=== PATIENT | male | born 1965 | race African-American/Black ===

== ENCOUNTER 2016-10-14 09:35 | Emergency (ER) | payer MEDICARE ==
[~2016-10-14] VITALS: Ht 152.4 cm; Wt 81.8 kg
[~2016-10-14 09:35] MED LIST: ABILIFY2 MG; ANUSOL-HC SUPPO25 MG RC; CARAFATE 1GM1 G PO; FLOMAX 0.40.4 MG/CAP PO; NAPROSYN 2250 MG/TAB PO; NO HOME MEDICATIONS; NORCO 325 MG-51 TAB PO; NORCO 325 MG-7.1 TAB PO; ROBAXIN 50500 MG/TAB PO; TYLENOL 500MG500 MG PO; TYLENOL 8 HR PO; TYLENOL EXTRA500 M1; ZOLOFT 25MG25 MG
[2016-10-14 09:39] VITALS: BP 133/72; PULSE 91; TEMP 97.4
== END 2016-10-14 10:40 | disposition left against medical advice (07) ==
LOC: COL.ER 09:35
DX: R10.32 Left lower quadrant pain (principal); Z53.29 Procedure and treatment not carried out because of patient's decision for other reasons
CPT/HCPCS: Q9967

== ENCOUNTER 2016-10-14 13:48 | Emergency (ER) | payer MEDICARE ==
[~2016-10-14] VITALS: Ht 175.3 cm; Wt 81.8 kg
[2016-10-14 13:53] VITALS: BP 172/78; PULSE 96; TEMP 96.7
[2016-10-14 14:53] LABS: BASO % 0.6 % (0.0-2.0); EOS # 0.1 (0.0-0.7); EOS % 3.3 % (0-4.0); HEMATOCRIT 37.9 % (42.0-52.0); HEMOGLOBIN 12.1 g/dl (13.5-18.0); LYMPH # 0.8 (1.2-3.4); LYMPH % 23.7 % (20.0-51.0); MEAN CELL VOLUME 89 fl (80.0-100.0); MEAN CORPUSCULAR HEMOGLOBIN 29 pg (27.0-31.0); MEAN CORPUSCULAR HGB CONC 32 g/dl (33.0-37.0); MEAN PLATELET VOLUME 10.9 fl (7.4-10.4); MONO # 0.4 (0.1-0.6); MONO % 11.8 % (1.7-9.3); PLATELET COUNT 273 K/mm3 (130-400); RED BLOOD COUNT 4.24 M/mm3 (4.20-5.60); REDCELL DISTRIBUTION WIDTH-CV 14.8 % (11.5-14.5); WHITE BLOOD COUNT 3.4 K/mm3 (4.8-10.8)
[2016-10-14 15:09] LABS: ADJUSTED CALCIUM 9.4 mg/dL (8.4-10.2); ALBUMIN 4.2 gm/dL (3.5-5.0); BILIRUBIN,TOTAL 0.9 mg/dL (0.0-1.0); CALCIUM 9.6 mg/dL (8.4-10.2); CREATININE, serum 0.86 mg/dL (0.66-1.25); POTASSIUM 3.8 mmol/L (3.4-5.0); TOTAL PROTEIN 7.4 gm/dL (6.4-8.2)
== END 2016-10-14 15:46 | disposition left against medical advice (07) ==
LOC: COL.ER 13:48
PROVIDERS: Physician Assistant Medical
DX: R10.32 Left lower quadrant pain (principal); Z53.21 Procedure and treatment not carried out due to patient leaving prior to being seen by health care provider
CPT/HCPCS: Q9967

== ENCOUNTER 2018-12-05 15:30 | Emergency (ER) | payer SELFPAY ==
[~2018-12-05] VITALS: Ht 172.7 cm; Wt 92.3 kg
[2018-12-05 15:35] VITALS: TEMP 98.1
[2018-12-05 16:10] LABS: BASO % 0.5 % (0.0-2.0); EOS # 0.2 (0.0-0.7); EOS % 2.8 % (0-4.0); GRAN # 3.5 (1.4-6.5); GRAN % 61.1 % (42.2-75.2); HEMATOCRIT 41.9 % (42.0-52.0); HEMOGLOBIN 13.6 g/dl (13.5-18.0); LYMPH # 1.5 (1.2-3.4); MEAN CELL VOLUME 88 fl (80.0-100.0); MEAN CORPUSCULAR HEMOGLOBIN 29 pg (27.0-31.0); MEAN CORPUSCULAR HGB CONC 33 g/dl (33.0-37.0); MEAN PLATELET VOLUME 11.2 fl (7.4-10.4); MONO # 0.5 (0.1-0.6); MONO % 9.1 % (1.7-9.3); PLATELET COUNT 308 K/mm3 (130-400); RED BLOOD COUNT 4.77 M/mm3 (4.20-5.60); REDCELL DISTRIBUTION WIDTH-CV 14.6 % (11.5-14.5)
[2018-12-05 16:19] LABS: ALBUMIN 4.3 gm/dL (3.5-5.0); BILIRUBIN,TOTAL 0.4 mg/dL (0.0-1.0); CREATININE, serum 0.92 (0.66-1.25); POTASSIUM 4.7 mmol/L (3.4-5.0); TOTAL PROTEIN 7.8 gm/dL (6.4-8.2)
[2018-12-05 16:36] LABS: ERYTHROCYTE SEDIMENTATION RATE 7 mm/hr (0-30)
[2018-12-05] MEDS ORDERED: VOLTAREN 75 DR75 MG PO (17:23)
[2018-12-05 17:38] VITALS: BP 155/97; PULSE 67
== END 2018-12-05 17:35 | disposition home or self-care (01) ==
LOC: COL.ER 15:30
PROVIDERS: Family Medicine
DX: G44.209 Tension-type headache, unspecified, not intractable (principal); I10 Essential (primary) hypertension; F32.9 Major depressive disorder, single episode, unspecified

== ENCOUNTER 2019-02-27 12:37 | Emergency (ER) | payer MEDICARE ==
[~2019-02-27] VITALS: Ht 172.7 cm; Wt 88.6 kg
[~2019-02-27 12:37] MED LIST changes: +VOLTAREN 75 DR75 MG PO
[2019-02-27 12:55] VITALS: BP 158/81; PULSE 69; TEMP 97
[2019-02-27] MEDS ORDERED: FLEXERIL 1010 MG/TAB PO (14:24)
[2019-02-27] MEDS ORDERED: NORCO 325 MG-51 TAB PO (14:24)
== END 2019-02-27 14:35 | disposition home or self-care (01) ==
LOC: COL.ER 12:37
DX: S39.012A Strain of muscle, fascia and tendon of lower back, initial encounter (principal); S39.011A Strain of muscle, fascia and tendon of abdomen, initial encounter; F41.9 Anxiety disorder, unspecified; F32.9 Major depressive disorder, single episode, unspecified; F17.210 Nicotine dependence, cigarettes, uncomplicated; Z98.890 Other specified postprocedural states; Z87.19 Personal history of other diseases of the digestive system; X50.0XXA Overexertion from strenuous movement or load, initial encounter; Y93.F2 Activity, caregiving, lifting

== ENCOUNTER 2020-08-07 06:51 | Day surgery (SDC) | payer MEDICAID ==
[~2020-08-07] VITALS: Ht 172.7 cm; Wt 94.2 kg
[~2020-08-07 06:51] MED LIST changes: +FLEXERIL 1010 MG/TAB PO
[2020-08-07 07:33] VITALS: BP 175/87; PULSE 70; TEMP 97.5
[2020-08-07 07:37] LABS: BASO % 0.9 % (0.0-2.0); EOS # 0.1 (0.0-0.7); EOS % 1.9 % (0-4.0); GRAN # 2.5 (1.4-6.5); GRAN % 59.6 % (42.2-75.2); HEMATOCRIT 45.9 % (42.0-52.0); HEMOGLOBIN 14.7 g/dl (13.5-18.0); LYMPH # 1.2 (1.2-3.4); LYMPH % 28.7 % (20.0-51.0); MEAN CELL VOLUME 87 fl (80.0-100.0); MEAN CORPUSCULAR HEMOGLOBIN 28 pg (27.0-31.0); MEAN CORPUSCULAR HGB CONC 32 g/dl (33.0-37.0); MEAN PLATELET VOLUME 10.4 fl (7.4-10.4); MONO # 0.4 (0.1-0.6); MONO % 8.7 % (1.7-9.3); PLATELET COUNT 311 K/mm3 (130-400); REDCELL DISTRIBUTION WIDTH-CV 13.9 % (11.5-14.5)
[2020-08-07] MEDS ORDERED: ADVIL200 MG PO (07:48)
--- NOTE | 2020-08-07 07:50 | NUR ---
PATENT CURRENTLY SLEEPING QUIETLY. CALL LIGHT IN REACH
[2020-08-07 07:52] LABS: ALBUMIN 4.6 gm/dL (3.5-5.0); BILIRUBIN,TOTAL 0.6 mg/dL (0.0-1.0); CREATININE, serum 1.05 (0.66-1.25)
[2020-08-07] MEDS ORDERED: ULTRAM 50MG TAB50 MG PO (10:52)
[2020-08-07 11:45] VITALS: BP 117/69; PULSE 81; TEMP 97.4
--- NOTE | 2020-08-07 11:45 | NUR ---
PATIENT TO RM 7 PER CART FROM PACU. DROWSY, BUT ANSWERS TO VERBAL STIMULI AND FALLS BACK TO SLEEP. INCISIONS CLEAN DRY INTACT. O2 SAT 97% ON ROOM AIR. DENIES NAUSEA OR VOMITING. DENIES PAIN AT THIS TIME.
[2020-08-07 11:51] VITALS: TEMP 97.4
[2020-08-07 12:00] VITALS: BP 122/70; PULSE 84
--- NOTE | 2020-08-07 12:00 | NUR ---
PATIENT MORE AWAKE AND ASKING TO GO HOME. RECEIVED WATER AND DRANK 1/2 CUP.
--- NOTE | 2020-08-07 12:11 | NUR ---
RIDE CALLED - DUE TO IT BEING AT LEAST 45MIN DRIVE.
[2020-08-07 12:15] VITALS: BP 122/73; PULSE 83
--- NOTE | 2020-08-07 12:15 | NUR ---
REQUESTED SOMETHING TO EAT SO HE CAN GO HOME.
[2020-08-07 12:30] VITALS: BP 121/73; PULSE 79
--- NOTE | 2020-08-07 12:30 | NUR ---
PATIENT FELL ASLEEP WHILE EATING MUFFIN.
--- NOTE | 2020-08-07 13:30 | NUR ---
AMBULATED TO BATHROOM WITH ASSIST SLOW STEADY GAIT. AMBULATED BACK TO BED WITH A MORE STEADY GAIT.
--- NOTE | 2020-08-07 13:45 | NUR ---
RECEIVED DISCHARGE INSTRUCTIONS DISCONTINUED IV AND INT- CATHETER INTACT.
--- NOTE | 2020-08-07 14:10 | NUR ---
DISCHARGED PER WC BY NURSING STAFF TO PRIVATE CAR IN CARE OF FRIEND RENETTA.
== END 2020-08-07 14:17 | disposition home or self-care (01) ==
LOC: SDCO 06:51
PROVIDERS: Surgery
DX: K42.9 Umbilical hernia without obstruction or gangrene (principal); K41.90 Unilateral femoral hernia, without obstruction or gangrene, not specified as recurrent; K40.90 Unilateral inguinal hernia, without obstruction or gangrene, not specified as recurrent; D17.6 Benign lipomatous neoplasm of spermatic cord; F17.210 Nicotine dependence, cigarettes, uncomplicated; I10 Essential (primary) hypertension; Z20.828 Contact with and (suspected) exposure to other viral communicable diseases; Z85.46 Personal history of malignant neoplasm of prostate; Z92.3 Personal history of irradiation
CPT/HCPCS: C1781; J0690; J1100; J1170; J1885; J2250; J2370; J2405; J2704; J3010; J7120

== ENCOUNTER 2021-03-03 13:23 | Inpatient (IN) | payer MEDICARE, MEDICAID ==
[~2021-03-03] VITALS: Ht 172.7 cm; Wt 88.2 kg
[~2021-03-03 13:23] MED LIST changes: +ADVIL200 MG PO; +ULTRAM 50MG TAB50 MG PO
[2021-03-03 14:24] LABS: BASO % 0.2 % (0.0-2.0); GRAN # 5.6 (1.4-6.5); GRAN % 88.5 % (42.2-75.2); HEMATOCRIT 38.7 % (42.0-52.0); HEMOGLOBIN 12.5 g/dl (13.5-18.0); LYMPH # 0.4 (1.2-3.4); LYMPH % 6.1 % (20.0-51.0); MEAN CELL VOLUME 87 fl (80.0-100.0); MEAN CORPUSCULAR HEMOGLOBIN 28 pg (27.0-31.0); MEAN CORPUSCULAR HGB CONC 32 g/dl (33.0-37.0); MEAN PLATELET VOLUME 11.1 fl (7.4-10.4); MONO # 0.3 (0.1-0.6); MONO % 4.7 % (1.7-9.3); PLATELET COUNT 241 K/mm3 (130-400); RED BLOOD COUNT 4.46 M/mm3 (4.20-5.60); REDCELL DISTRIBUTION WIDTH-CV 13.8 % (11.5-14.5)
[2021-03-03 16:08] LABS: ALANINE AMINOTRANSFERASE 17 U/L (4-49); ALBUMIN 3.9 gm/dL (3.5-5.0); ALKALINE PHOSPHATASE 85 U/L (50-136); ANION GAP 3 mmol/L (7-16); AST,SGOT 29 U/L (15-37); BILIRUBIN,TOTAL 0.7 mg/dL (0.0-1.0); BLOOD UREA NITROGEN 15 mg/dL (9-20); CARBON DIOXIDE 28 mmol/L (22-30); CHLORIDE 102 mmol/L (98-107); CREATININE, serum 0.89 (0.66-1.25); GLUCOSE 98 mg/dL (74-106); SODIUM 134 mmol/L (137-145); TOTAL PROTEIN 7.5 gm/dL (6.4-8.2)
[2021-03-03 16:39] LABS: TROPONIN-I < 0.012 ng/mL (0.000-0.035)
[2021-03-03 18:40] VITALS: BP 138/79; PULSE 74; TEMP 98.3
[2021-03-03 20:54] VITALS: BP 106/69; PULSE 73; TEMP 98.6
[2021-03-04 03:22] VITALS: BP 99/59; PULSE 70; TEMP 98.6
[2021-03-04 14:04] VITALS: BP 93/57; PULSE 63; TEMP 97.9
[2021-03-04 16:22] VITALS: BP 95/52; PULSE 60; TEMP 97.9
[2021-03-04 20:04] VITALS: BP 141/64; PULSE 61; TEMP 98.4
[2021-03-05 00:31] VITALS: BP 133/57; PULSE 56; TEMP 98.9
[2021-03-05 04:04] VITALS: BP 154/68; PULSE 64; TEMP 98.9
[2021-03-05 07:40] VITALS: BP 110/47; PULSE 67; TEMP 98.1
[2021-03-05 11:44] VITALS: BP 137/50; PULSE 55; TEMP 98.9
[2021-03-05] MEDS ORDERED: DECADRON6 MG PO (12:59)
[2021-03-05] MEDS ORDERED: DOXYCYCLINE 10100 MG PO (13:02)
[2021-03-05] MEDS ORDERED: PROVENTIL0.09 MG/A1 IH (13:02)
== END 2021-03-05 14:45 | disposition home or self-care (01) | DRG 177 ==
LOC: COL.ER 13:23 → MEDICAL 14:54
PROVIDERS: Emergency Medicine; ADMIT Internal Medicine
DX: U07.1 COVID-19 (principal); J12.82 Pneumonia due to coronavirus disease 2019; J96.01 Acute respiratory failure with hypoxia; E78.5 Hyperlipidemia, unspecified; I10 Essential (primary) hypertension; F17.210 Nicotine dependence, cigarettes, uncomplicated; Z85.46 Personal history of malignant neoplasm of prostate
CPT/HCPCS: 99223-AI; 99232-AI; 99239; J0696; J1100; J1650; J2270; J7030; J7120; J8540

== ENCOUNTER 2021-03-07 20:34 | Observation (INO) | payer MEDICARE, MEDICAID ==
[~2021-03-07] VITALS: Ht 172.7 cm; Wt 90.9 kg
[~2021-03-07 20:34] MED LIST changes: +DECADRON6 MG PO; +DOXYCYCLINE 10100 MG PO; +PROVENTIL0.09 MG/A1 IH
[2021-03-07 23:22] LABS: BASO % 0.1 % (0.0-2.0); EOS % 0.1 % (0-4.0); GRAN # 5.7 (1.4-6.5); GRAN % 80.6 % (42.2-75.2); HEMATOCRIT 40.4 % (42.0-52.0); HEMOGLOBIN 13.1 g/dl (13.5-18.0); LYMPH # 0.7 (1.2-3.4); LYMPH % 9.6 % (20.0-51.0); MEAN CELL VOLUME 86 fl (80.0-100.0); MEAN CORPUSCULAR HEMOGLOBIN 28 pg (27.0-31.0); MEAN CORPUSCULAR HGB CONC 32 g/dl (33.0-37.0); MEAN PLATELET VOLUME 10.7 fl (7.4-10.4); MONO # 0.6 (0.1-0.6); MONO % 8.6 % (1.7-9.3); PLATELET COUNT 284 K/mm3 (130-400); RED BLOOD COUNT 4.69 M/mm3 (4.20-5.60); REDCELL DISTRIBUTION WIDTH-CV 14.2 % (11.5-14.5)
[2021-03-07 23:31] LABS: ALANINE AMINOTRANSFERASE 49 U/L (4-49); ALBUMIN 3.7 gm/dL (3.5-5.0); ALKALINE PHOSPHATASE 101 U/L (50-136); ANION GAP 4 mmol/L (7-16); AST,SGOT 37 U/L (15-37); BLOOD UREA NITROGEN 15 mg/dL (9-20); CALCIUM 9.4 mg/dL (8.4-10.2); CARBON DIOXIDE 29 mmol/L (22-30); CHLORIDE 105 mmol/L (98-107); CREATININE, serum 0.84 (0.66-1.25); GLUCOSE 93 mg/dL (74-106); POTASSIUM 3.9 mmol/L (3.4-5.0); SODIUM 138 mmol/L (137-145); TOTAL PROTEIN 7.4 gm/dL (6.4-8.2)
[2021-03-07 23:38] LABS: INR 1.2 (0.8-3.0); PROTHROMBIN TIME 13.1 SECONDS (9.7-12.8)
[2021-03-07 23:41] LABS: PARTIAL THROMBOPLASTIN TIME 22.3 SECONDS (26.0-37.0)
[2021-03-07 23:50] LABS: TROPONIN-I < 0.012 ng/mL (0.000-0.035)
[2021-03-07 23:58] LABS: C-REACTIVE PROTEIN 6.2 mg/dL (0.0-0.9)
[2021-03-08 05:11] VITALS: BP 161/92; PULSE 49; TEMP 97.8
--- NOTE | 2021-03-08 06:34 | NUR ---
Patient admitted to the medical floor room 309 via hospital bed from ER around 0500 am. Patient A/O x3. Patient denies chest pain, SOB, headache, dizziness, N/V or diarrhea. Patient currently on 3L oxygen via NC. Breathing even and unlabored. Patient told this nurse that he is very very scared of needles. Respiratory therapist came in the room at this time to get ABGs. Stayed with patient in the room to talk to him and distract his mind from needles. Respiratory therapist unable to get ABGS and called another therapist therapist. When the other respiratory therapist came in the room, patient get very agitated and upset with the respiratory therapist. Patient yelling at the respiratory therapist for not treating him well. Patient told this nurse that he wants to go home. Called warehouse operator Jaimie, called Dr. Shahid and Dr. Castano to update what's going on. Per Dr. Castano, if patient decides to leave the hospital, he may leave. Call light within reach. Bed alarms on. Fall precaution maintained.
[2021-03-08 07:25] VITALS: BP 163/61; PULSE 46; TEMP 98.3
--- NOTE | 2021-03-08 12:28 | NUR ---
0800 PT RECEIVED RESTING IN BED. NO S/S OF DISTRESS NOTED. PT HAS NO COMPLAINTS AT THIS TIME. AAOX3. COMFORT MEASURES IN PLACE. CALL-LIGHT IN REACH. BED ALARM ON. WILL CONTINUE TO MONITOR. 0900 MEDICATIONS ADMINISTERED ORDERED. PT COMPLAINT OF AN HEADACHE AND WAS MEDICATED. PT ATE 100% OF HIS MEAL. COMFORT MEASURES IN PLACE WILL CONTINUE TO MONITOR. 1000 PT REASSESSED FOR PAIN AND HDENIED HAVING THE HEADACHE. 1130 DISCHARGE INSTRUCTIONS REVIEWED WITH PT, PT HAS NO CONCERNS AT THIS TIME IN REGARDS TO DISCHARGE INSTRUCTIONS. HE STATES HE FEEL LIKE HE IS BEING KICKED OUT DUE TO A PREVIOUS INTERACTION WITH A RESPIRATORY THERAPIST FROM THE PREVIOUS SHIFT. PT STATES HE FINE TO GO HOME AND WILL CALL HIS . IV AND TELE MONITOR DISCONTINUED. 1200 PT TRANSPORRTED TO HIS SPOUSE VEHICLE. NO S/S OF DISTRESS NOTED.
== END 2021-03-08 12:00 | disposition home or self-care (01) ==
LOC: COL.ER 20:34 → MEDICAL 23:05
PROVIDERS: Emergency Medicine; Nurse Practitioner Family
DX: U07.1 COVID-19 (principal); J96.01 Acute respiratory failure with hypoxia; R55 Syncope and collapse; D64.9 Anemia, unspecified; R53.81 Other malaise; I10 Essential (primary) hypertension; F32.9 Major depressive disorder, single episode, unspecified; F17.210 Nicotine dependence, cigarettes, uncomplicated; F60.9 Personality disorder, unspecified; W19.XXXA Unspecified fall, initial encounter; Z85.46 Personal history of malignant neoplasm of prostate; Z79.899 Other long term (current) drug therapy; Z91.19 Patient's noncompliance with other medical treatment and regimen; Z80.3 Family history of malignant neoplasm of breast
CPT/HCPCS: G0378; J0696; J1100; J1650; J7030